=== PATIENT | female | born 1975 | race Two or more races ===

== ENCOUNTER 2017-09-13 09:00 | Emergency (ER) | payer MEDICAID, OTHER ==
[~2017-09-13] VITALS: Ht 175.3 cm; Wt 72.6 kg
[2017-09-13] MEDS ORDERED: LEVETIRACETAM INJ 1,000 MG in D5W 5% 100 ML IV ONE (09:15)
[2017-09-13] MEDS ORDERED: LORazepam 2MG/ML-1ML VIAL ONE (09:19)
[2017-09-13] MEDS ORDERED: LORazepam 2MG/ML-1ML VIAL IV ONE (09:30)
[2017-09-13 09:39] VITALS: BP 119/83
== END 2017-09-13 11:49 | disposition home or self-care (01) ==
LOC: EDBD 09:00 → ER 09:00
DX: R56.9 Unspecified convulsions (principal); C71.9 Malignant neoplasm of brain, unspecified; Z95.0 Presence of cardiac pacemaker
CPT/HCPCS: 93005; 94761; 96365; 96375; 99284; J1953; J2060; J7060